=== PATIENT | female | born 1985 | race Caucasian/White ===

== ENCOUNTER 2019-06-28 12:05 | Emergency (ER) | payer OTHER ==
[~2019-06-28] VITALS: Ht 167.6 cm; Wt 93.0 kg
--- OUTSIDE RECORDS SUMMARY | ~2019-06-28 | XMS | Clinical Summary ---
Demographics + + + | Address | [address] | | | [address] | | | [place] [address] | + + + | Home Phone | | + + + | Preferred Language | Unknown | + + + | Marital Status | Single | + + + | Presybeterian Affiliation | Unknown | + + + | Race | Unknown | + + + | Ethnic Group | Unknown | + + + Author + + + | Author | [facility] | | | and [place] | + + + | Organization | [facility] | | | and [place] | + + + | Address | Unknown | + + + | Phone | Unavailable | + + + Support + + + + + | Name | Relationship | Address | Phone | + + + + + | Vandonsel,Sayda | ECON | NA | | | | | NA, | | + + + + + | Davy Jett | ECON | [address] | | | | | [place] | | | | | [address] | | + + + + + Care Team Providers + +------+ + | Care Biomedical Technician Name | Role | Phone | + +------+ + PCP | Unavailable | + +------+ + Allergies Not on File Medications Not on file Active Problems Not on file Social History + +-------+ +--------+------+ | Tobacco Use | Types | Packs/Day | Years | Date | | | | | Used | | + +-------+ +--------+------+ | Never Assessed | | | | | + +-------+ +--------+------+ + + + | Sex Assigned at | Date Recorded | | | | + + + | Not on file | | + + + + + + + | Job Start Date | Occupation | Industry | + + + + | Not on file | Not on file | Not on file | + + + + + + + + | Travel History | Travel Start | Travel End | + + + + + + | No recent travel history available. | + + Last Filed Vital Signs Not on file Plan of Treatment + + + + + | Health Maintenance | Due Date | Last Done | Comments | + + + + + | Vaccine: | | | | | Dtap/Tdap/Td (1 - | 3 | | | | Tdap) | | | | + + + + + | Cervical Cancer | | | | | Screening (Pap) | 4 | | | + + + + + | Vaccine: Influenza | | | | | (#1) | 9 | | | + + + + + Results Not on filefrom Last 3 Months Insurance + +--------+ +--------+ +---------+------+ | Payer | Benefi | Subscriber | Effect | Phone | Address | Type | | | t Plan | ID | yanelis | | | | | | / | | Dates | | | | | | Group | | | | | | + +--------+ +--------+ +---------+------+ | [employer] | HEALTH | [id number] | 04/14/20 | [phone] | | PPO | | | COMP | | 10-Pre | 7 | | | | | FIRST | | sent | | | | | | CHOICE | | | | | | + +--------+ +--------+ +---------+------+ + +--------+ +--------+ + + | Guarantor Name | Accoun | Relation to | Date | Phone | Billing Address | | | t Type | Patient | of | | | | | | | | | | + +--------+ +--------+ + + | Brittany Jett S | Person | Self [birth year] | [address] | | | al/Fam | | 1985 | [phone] | [address] | | | ry | | | 6 (Home) | [place] [address] | | | | | | [phone] | | | | | | | 4 (Work) | | + +--------+ +--------+ + + Advance Directives Patient has advance care planning documents on file. For more information, please contact:[facility] [address]"
--- OUTSIDE RECORDS SUMMARY | ~2019-06-28 | XMS | Clinical Summary ---
Demographics + + + | Address | [address] | | | [address] | | | [place] [address] | + + + | Home Phone | | + + + | Preferred Language | Unknown | + + + | Marital Status | Single | + + + | Holiness Affiliation | Unknown | + + + | Race | Unknown | + + + | Ethnic Group | Unknown | + + + Author + + + | Author | [facility] | | | and [place] | + + + | Organization | [facility] | | | and [...] [place] | | | | | [address] | | + + + + + Care Team Providers + +------+ + | Care Metallurgical Inspector Name | Role | Phone | + [...] +--------+ +---------+------+ | [employer] | HEALTH | [id number] | 04/14/20 | [phone] | | PPO [...] | | al/Fam | | 1985 | [phone] | [address] | | | ry | | | 6 (Home) | [place] [address] | | | | | | [phone] | | | | | | | 4 (Work) | | + +--------+ +--------+ + + Advance Directives Patient has advance care planning documents on file. For more information, please contact:[facility] [place] [address]"
--- OUTSIDE RECORDS SUMMARY | ~2019-06-28 | XMS | Clinical Summary ---
Demographics + + + | Address | [address] | | | [place] [address] | + + + | Home Phone | | + + + | Preferred Language | Unknown | + + + | Marital Status | Single | + + + | Voodoo Affiliation | NON | + + + [...] Team Providers + +------+ + | Care Coal Screener Name | Role | Phone | + +------+ + PCP | Unavailable | + +------+ + Source Comments NO is fully live on both [facility] Amb[facility] and [facility] InPatient.[facility] Allergies No Known Allergies Medications + [...] e | + + + +---------+------+------+-------+ | N-[id number] | Take by mouth. | | 0 [...] ry | | | 6 (Home) | [address] | + +--------+ +--------+ + + Advance [...]
--- OUTSIDE RECORDS SUMMARY | ~2019-06-28 | XMS | Encounter Summary ---
Demographics + + + | Address | [address] | | | [place] [address] | + + + | Home Phone | | + + + | Preferred Language | Unknown | + + + | Marital Status | Single | + + + | Jain Affiliation | NON | + + + | Race | White | + + + | Ethnic Group | Not or | + + + Author + + + | Author | [facility] | + + + | Organization | [facility] | + + + | Address | Unknown | + + + | Phone | Unavailable | + + + Support + + +---------+ + | Name | Relationship | Address | Phone | + + +---------+ + | Davy Jett | ECON | Unknown | | + + +---------+ + Care Team Providers + +------+ + | Care Tool And Die Machinist Name | Role | Phone | + +------+ + PCP | Unavailable | + +------+ + Encounter Details +--------+ + + + + | Date | Type | Department | Care Team | Description | +--------+ + + + + | 03/15/ | Abstract | Neurology at | Clinic, Neurology | | | 2012 | | [facility] & | | | | | | Healing [facility] | | | | | | Paramjit Patel Mailcode: | | | | | | [facility] | | | | | | Health and Healing, | | | | | | [facility] | | | | | | Floor [place], [place] | | | | | | [address] | | | | | | [phone] | | | +--------+ + + + [...]
--- OUTSIDE RECORDS SUMMARY | ~2019-06-28 | XMS | Encounter Summary ---
Demographics + + + | Address | [address] | | | [place] [address] | + + + | Home Phone | | + + + | Preferred Language | Unknown | + + + | Marital Status | Single | + + + | Hinduism Affiliation | NON | + + + | Race | White | + + + | Ethnic Group | Not or | + + + Author + + + | Author | [facility] | + + + | Organization | [facility] | + + + | Address | Unknown | + + + | Phone | Unavailable | + + + Support + + +---------+ + | Name | Relationship | Address | Phone | + + +---------+ + | Davy Jett | ECON | Unknown | | + + +---------+ + Care Team Providers + +------+ + | Care Director Social Welfare Name | Role | Phone | + [...] + + | 02/17/ | Hospital | [address] | Kee Cedeno, | | | 2012 - | Encounter | [address] | [place] [address] [facility] | | | | | [address] [place] [address] | [address] | | | 02/18/ | | [place], [place] | [place] | | | 2012 | | [address] | [address] | | | | | [phone] | [phone] | | | | | | | [...] and plan outlined therein. Kee Cedeno M.D. 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 She then went to the [facility] for further solitario luation. There she was noted to have a UA with positive LE and 15 WBC's, no bacteria (asympt omatic bacturia). She denied any urinary symptoms, but was given a dose of cipro and some ty lenol for her headache. She was then transferred to [facility] for further evaluation. She [...] mg by mouth once daily., Historical Med D-[id number]-ZDA ESTR/ETHIN ESTRA (SEASONIQUE ORAL) Take by mouth., [...] | + + + +---------+--------+ + | F-[id number] | Take by mouth. | | 0 [...] Tristian Boland - 02/18/2013 12:00 PM PDT PRESSFITTER NOTE: Visited with Patient and Dad. Patient and Dad shared events leading to hospitalization; life and work in [place]; 4 yea r old son as well as hopes and dreams. Patient reported supportive family and friends; mom and sisters in [place]. Offered emotional support and encouragement. [employer] team will follow as needed. Chaplain Tristian Boland M.Div., [facility]3] [phone] Pager [phone]; #[phone] documented in this encounter Plan of Treatment [...] | + + + + + | [facility] | [address] | [place] [address] | | | SERVICES, CORE | CHELE [...] | | | LABORATORY | | | [place] | | | SERVICES, | | | [...] | + + + + + | [facility] | [address] | [place] [address] | | | SERVICES, CORE | CHELE [...] | + + + + + | [facility] | [address] | [place] [address] | | | [address] | PARK [...] | + + + + + | [facility] | [address] | [place] [address] | | | SERVICES, CORE | CHELE [...] | | | LABORATORY | | | [place] | | | SERVICES, | | | [...] | + + + + + | [facility] | [address] | [place] [address] | | | SERVICES, CORE | PARK [...]
--- OUTSIDE RECORDS SUMMARY | ~2019-06-28 | XMS | Encounter Summary ---
Demographics + + + | Address | [address] | | | [place] [address] | + + + | Home Phone | | + + + | Preferred Language | Unknown | + + + | Marital Status | Single | + + + | Anglican Affiliation | NON | + + + | Race | White | + + + | Ethnic Group | Not or | + + + Author + + + | Author | [facility] | + + + | Organization | [facility] | + + + | Address | Unknown | + + + | Phone | Unavailable | + + + Support + + +---------+ + | Name | Relationship | Address | Phone | + + +---------+ + | Davy Jett | ECON | Unknown | | + + +---------+ + Care Team Providers + +------+ + | Care Machine Heel Seat Fitter Name | Role | Phone | + +------+ + PCP | Unavailable | + +------+ + Encounter Details +--------+ + + + + | Date | Type | Department | Care Team | Description | +--------+ + + + + | 03/15/ | Abstract | Neurology at | Clinic, Neurology | | | 2012 | | [facility] & | | | | | | Healing [facility] | | | | | | Paramjit Patel Mailcode: | | | | | | [facility] | | | | | | Health and Healing, | | | | | | [facility] | | | | | | Floor [place], [place] | | | | | | [address] | | | | | | [phone] | | | +--------+ + + + [...]
--- OUTSIDE RECORDS SUMMARY | ~2019-06-28 | XMS | Encounter Summary ---
Demographics + + + | Address | [address] | | | [place] [address] | + + + | Home Phone | | + + + | Preferred Language | Unknown | + + + | Marital Status | Single | + + + | Scientology Affiliation | NON | + + + | Race | White | + + + | Ethnic Group | Not or | + + + Author + + + | Author | [facility] | + + + | Organization | [facility] | + + + | Address | Unknown | + + + | Phone | Unavailable | + + + Support + + +---------+ + | Name | Relationship | Address | Phone | + + +---------+ + | Davy Jett | ECON | Unknown | | + + +---------+ + Care Team Providers + +------+ + | Care Motor Bike Mechanic Name | Role | Phone | + [...] + + | 02/17/ | Hospital | [address] | Kee Cedeno, | | | 2012 - | Encounter | [address] | [place] [address] [facility] | | | | | [address] [place] [address] | [address] | | | 02/18/ | | [place] | | | 2012 | | [address] | [address] | | | | | [phone] | [phone] | | | | | | | [...] and plan outlined therein. Kee Cedeno M.D. 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 She then went to the [facility] for further solitario luation. There she was noted to have a UA with positive LE and 15 WBC's, no bacteria (asympt omatic bacturia). She denied any urinary symptoms, but was given a dose of cipro and some ty lenol for her headache. She was then transferred to [facility] for further evaluation. She denied any [...] mg by mouth once daily., Historical Med K-ICTZHKD-[id number] ESTR/ETHIN ESTRA (SEASONIQUE ORAL) Take by mouth., [...] | + + + +---------+--------+ + | D-[id number]-[id number] | Take by mouth. | | 0 [...] Tristian Boland - 02/18/2013 12:00 PM PDT PE MANAGER NOTE: Visited with Patient and Dad. Patient and Dad shared events leading to hospitalization; life and work in [place]; 4 yea r old son as well as hopes and dreams. Patient reported supportive family and friends; mom and sisters in [place]. Offered emotional support and encouragement. [employer] team will follow as needed. Chaplain Tristian Boland M.Div., [facility] [phone] Pager #[phone]; #[phone] documented in this encounter Plan of Treatment [...] | + + + + + | [facility] | [address] | [place] [address] | | | SERVICES, CORE | CHELE [...] | | | LABORATORY | | | [place] | | | SERVICES, | | | [...] [place] [facility] | [address] | [place] [address] | | | SERVICES, CORE | CHELE [...] | + + + + + | [facility] | [address] | [place] [address] | | | [address] | PARK [...] | + + + + + | [facility] | [address] | [place] [address] | | | SERVICES, CORE | [address] | | | + + + [...] | | | LABORATORY | | | [place] | | | SERVICES, | | | [...] | + + + + + | [facility] | [address] | [place] [address] | | | SERVICES, CORE | PARK [...]
--- OUTSIDE RECORDS SUMMARY | ~2019-06-28 | XMS | Clinical Summary ---
Demographics + + + | Address | [address] | | | [place] [address] | + + + | Home Phone [...] Team Providers + +------+ + | Care Geophysical Prospector Name | Role | Phone | + +------+ + PCP | Unavailable | + +------+ + Source Comments NO is fully live on both [facility] Ambulatory and [facility] InPatient.[facility] Allergies No Known Allergies Medications + [...] e | + + + +---------+------+------+-------+ | B-[id number] | Take by mouth. | | 0 [...] ry | | | 6 (Home) | [address] | + +--------+ +--------+ + + Advance [...]
[~2019-06-28 12:05] MED LIST: NORCO 5-325 TA1 EACH PO; ONE DAILY WITH1 EACH PO; PROZAC40 MG PO; SEASONIQUE 0.11 EACH PO; XANAX0.25 MG PO
[2019-06-28] MEDS ORDERED: BUPROPION HCL200 MG PO (12:14)
[2019-06-28] MEDS ORDERED: CYMBALTA30 MG PO (12:15)
[2019-06-28] MEDS ORDERED: GABAPENTIN300 MG PO (12:15)
[2019-06-28] MEDS ORDERED: TRAMADOL HCL50 MG PO (14:15)
== END 2019-06-28 14:36 | disposition home or self-care (01) ==
LOC: ED 12:05
DX: M54.5 Low back pain (principal); F17.200 Nicotine dependence, unspecified, uncomplicated; F32.9 Major depressive disorder, single episode, unspecified; F41.9 Anxiety disorder, unspecified; Z79.899 Other long term (current) drug therapy
CPT/HCPCS: 72131; 81001; 84703; 99284-25; 99406

== ENCOUNTER 2019-12-02 16:02 | Emergency (ER) | payer OTHER ==
[~2019-12-02] VITALS: Ht 167.6 cm; Wt 93.0 kg
[~2019-12-02 16:02] MED LIST changes: +BUPROPION HCL200 MG PO; +CYMBALTA30 MG PO; +GABAPENTIN300 MG PO; +TRAMADOL HCL50 MG PO
[2019-12-02] MEDS ORDERED: PREDNISONE20 MG PO (17:06)
[2019-12-02] MEDS ORDERED: ZITHROMAX250 MG PO (17:06)
== END 2019-12-02 17:19 | disposition home or self-care (01) ==
LOC: ED 16:02
DX: J44.1 Chronic obstructive pulmonary disease with (acute) exacerbation (principal); J06.9 Acute upper respiratory infection, unspecified; F41.9 Anxiety disorder, unspecified; F32.9 Major depressive disorder, single episode, unspecified; F17.200 Nicotine dependence, unspecified, uncomplicated; Z79.899 Other long term (current) drug therapy
CPT/HCPCS: 71046; 94640; 94664; 99284-25; 99406

== ENCOUNTER 2020-04-17 11:07 | Emergency (ER) | payer OTHER ==
[~2020-04-17] VITALS: Ht 167.6 cm; Wt 95.2 kg
--- OUTSIDE RECORDS SUMMARY | ~2020-04-17 | XMS | Encounter Summary ---
Demographics + + + | Address | [address] | | | [place] [address] | + + + | Home Phone | | + + + | Preferred Language | Unknown | + + + | Marital Status | Single | + + + | Adventist Affiliation | NON | + + + | Race | White | + + + | Ethnic Group | Not or | + + + Author + + + | Author | [facility] | + + + | Organization | [facility] | + + + | Address | Unknown | + + + | Phone | Unavailable | + + + Support + + +---------+ + | Name | Relationship | Address | Phone | + + +---------+ + | Davy Jett | ECON | Unknown | | + + +---------+ + Care Team Providers + +------+ + | Care Commercial Instructor Supervisor Name | Role | Phone | + +------+ + PCP | Unavailable | + +------+ + Encounter Details +--------+ + + + + | Date | Type | Department | Care Team | Description | +--------+ + + + + | 03/15/ | Abstract | Neurology | Clinic, Neurology | | | 2012 | | Neuromuscular Clinic | | | | | | at [facility] | | | | | | Health & Healing | | | | | | [address] | | | | | | [facility] | | | | | | and Healing, | | | | | | Building | | | | | | Floor [place], [place] | | | | | | [address] | | | | | | [phone] | | | +--------+ + + + + Social History + +-------+ +--------+------+ | Tobacco Use | Types | Packs/Day | Years | Date | | | | | Used | | + +-------+ +--------+------+ | Never Smoker | | | | | + +-------+ +--------+------+ + + +---------+ + | Alcohol Use | Drinks/Week | oz/Week | Comments | + + +---------+ + | Yes | | | Drinks a few times a | | | | | year | + + +---------+ + + + + | Sex Assigned at [...] recent travel history available. | + + documented as of this encounter Plan of Treatment Not on filedocumented as of this encounter Visit Diagnoses Not on filedocumented in this encounter"
--- OUTSIDE RECORDS SUMMARY | ~2020-04-17 | XMS | Encounter Summary ---
Demographics + + + | Address | [address] | | | [place] [address] | + + + | Home Phone | | + + + | Preferred Language | Unknown | + + + | Marital Status | Single | + + + | Adventism Affiliation | NON | + + + | Race | White | + + + | Ethnic Group | Not or | + + + Author + + + | Author | [facility] | + + + | Organization | [facility] | + + + | Address | Unknown | + + + | Phone | Unavailable | + + + Support + + +---------+ + | Name | Relationship | Address | Phone | + + +---------+ + | Davy Jett | ECON | Unknown | | + + +---------+ + Care Team Providers + +------+ + | Care Bookstore Manager Name | Role | Phone | + +------+ + | Violetta King | PCP | | + +------+ + Reason for Visit +--------+ + | Reason | Comments | +--------+ + | Other | involuntary movements | +--------+ + AUTH/CERT +--------+--------+ + + + + | Status | Reason | Specialty | Diagnoses / | Referred By | Referred To | | | | | Procedures | Contact | Contact | +--------+--------+ + + + + | | | | | | | +--------+--------+ + + + + Encounter Details +--------+ + + + + | Date | Type | Department | Care Team | Description | +--------+ + + + + | 02/17/ | Hospital | [address] | Kee Cedeno, | | | 2012 - | Encounter | [address] | [place] [facility] | | | | | [address] [place] [address] | [address] | | | 02/18/ | | [place], [place] | [place], [place] | | | 2012 | | [address] | [id number] | | | | | [phone] | [phone] | | | | | | | | +--------+ + + + [...] + + documented as of this encounter Last Filed Vital Signs + + + + + | Vital Sign | Reading | Time Taken | Comments | + + + + + | Blood Pressure | 112/57 | 02/18/2013 8:05 AM | | | | | PDT | | + + + + + | Pulse | 68 | 02/18/2013 8:05 AM | | | | | PDT | | + + + + + | Temperature | 36.8 C (98.2 F) | 02/18/2013 8:05 AM | | | | | PDT | | + + + + + | Respiratory Rate | 18 | 02/18/2013 8:05 AM | | | | | PDT | | + + + + + | Oxygen Saturation | 96% | 02/18/2013 8:05 AM | | | | | PDT | | + + + + + | Inhaled Oxygen | - | - | | | Concentration | | | | + + + + + | Weight | 107 kg (235 lb 14.3 | 02/17/2013 10:27 PM | | | | oz) | PDT | | + + + + + | Height | - | - | | + + + + + | Body Mass Index | - | - | | + + + + + documented in this encounter Discharge Summaries Kee Cedeno MD - 02/18/2013 1:51 PM PDTI have read this discharge summary and agree w ith the findings and assessment and plan outlined therein. Kee Cedeno M.D. [facility] Department of Neurology [facility] olly Tsai MD - 02/18/2013 1:51 PM PDTFormatting of this note might be different from the or iginal. INPATIENT PHYSICIAN DISCHARGE SUMMARY Attending Physician: Kee Cedeno MD PCP: MARY ANNE Carmichael Admission Date: 02/17/2013 Discharge Date: 02/18/2013 Diagnoses Principal Final Diagnosis: 1. Conversion disorder Additional Diagnoses: -None Procedures 1. None Reason For Admission: Brittany Jett is a 27 y.o. female with a PMH of depression and chronic low back and knee pain who presented with a 4 day history of abnormal movements. Ms. 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 The next day she noticed twitching of bilateral lower extremities, which was accompanied by a sensation of tightening. She has noticed the twitching is worse on the right, but was p resent on both sides most of the day. She was able to suppress the movements when she tried, but described a worsening jerking movement after she tried to suppress them. She noted that people watching her made her movements worse. The day after the movements developed in her lower extremities, she then stated that the next day she developed twitching movements of he r bilateral upper extremities. She said that she did have pain with these movements, especia lly at night in her legs. 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 According to the patient, her PCP ben basic labs which showed a leukocytosis and did a brain MRI, which was normal. She then described that on the morning of 02/17/2013, she felt very lightheaded while she was sitting with her son. No one else besides her 4 year old son was there to witness th is episode. She denied any LOC, any amnesia to the event, any bowel or bladder incontinence, tongue biting, but did describe some increased bilateral lower extremity weakness. She also described a new headache on the day of admission, that was retroorbital and radiated to beh ind her ears. She then said that she had an emotional breakdown with a crying episode becaus e she "just wanted it to go away". [facility] then went to [facility] further solitario luation. There she was noted to have a UA with positive LE and 15 WBC's, no bacteria (asympt omatic bacturia). She denied any urinary symptoms, but was given a dose of cipro and some ty lenol for her headache. She was then transferred to [facility] for further evaluation. She denied any vision changes, slurred speech, word finding difficulties, any previous abn ormal movements, no throat clearing, no grunting, no recent URI or GI illnesses. She does en dorse monthly falls, which she attributes to her foot not turning in correctly. Her most rec ent fall was a couple of weeks ago. Hospital Course: Admitted to the neurology service. A broad differential diagnosis was considered on admiss ion including restless leg syndrome (unlikely due to abrupt and severe onset), seizures (unl ikely given ability to suppress movements by patient, non-stereotyped and multidirectional m ovements and no alteration in consciousness with bilateral involvement). Physical examinati on was significant for a patient with upper and lower extremity (including head) varying esthela quency and amplitude suppressible and distractible multidirectional movements accompanied by non-stereotyped upper and lower extremity and axial jerks. Otherwise was neurologically int act. Also with recent life stressors. Iron studies evaluated and found to be iron replete. Likely diagnosis of conversion disorder. I spoke with the patient and father about this and they were accepting of this diagnosis. Also spoke with primary care physician and he will help her find follow up with psych for cognitive therapy and also PT/OT as needed as an outp atient. Told her that she has a good prognosis. No further follow up with neurology. Discharge Medication List as of 02/18/2013 12:37 PM CONTINUE these medications which have NOT CHANGED Details FLUoxetine 40 mg Oral capsule Take 40 mg by mouth once daily., Historical Med D-[id number] ESTR/ETHIN ESTRA (SEASONIQUE ORAL) Take by mouth., Historical Med multivitamin Oral tablet Take 1 Tab by mouth once daily., Historical Med Diet Regular Regular diet- There are no restrictions to your diet. You may eat or drink whatever you pr efer, though healthy food choices are recommended. Activity No activity restrictions Destination: Destination: Home Condition on Discharge Stable Other Discharge Orders and Instructions Outstanding labs/studies: None Discharging Physician: MOLLY TSAI MD Attending Physician: Kee Cedeno MDElectronically signed by Kee Cedeno MD at 02/18 4:41 PM PDTdocumented in this encounter Discharge Instructions Instructions Yue Gleason RN - 02/18/2013dditional Instructions: Follow up with your provider and take all medications as prescribed. Have a safe trip home. Discharge Nurse: YUE GLEASON RN Date: 02/18/2013 Discharge Time: 12:31 PM documented in this encounter Medications at Time of Discharge + + + +---------+--------+ + | Medication | Sig | Dispensed | Refills | Start | End Date | | | | | | Date | | + + + +---------+--------+ + | FLUoxetine 40 mg | Take 40 mg by mouth | | 0 | | | | Oral capsule | once daily. | | | | | + + + +---------+--------+ + | P-HITXMTU-CYM | Take by mouth. | | 0 | | | | ESTR/ETHIN ESTRA | | | | | | | (SEASONIQUE ORAL) | | | | | | + + + +---------+--------+ + | multivitamin Oral | Take 1 Tab by mouth | | 0 | | | | tablet | once daily. | | | | | + + + +---------+--------+ + documented as of this encounter Progress Notes Tristian Boland - 02/18/2013 12:00 PM PDT STOCK HOLDER NOTE: Visited with Patient and Dad. Patient and Dad shared events leading to hospitalization; life and work in [place]; 4 yea r old son as well as hopes and dreams. Patient reported supportive family and friends; mom and sisters in [place]. Offered emotional support and encouragement. Tape Recording Machine Operator team will follow as needed. Chaplain Tristian Boland M.Div., [facility] [phone] Pager [phone]; #[phone] documented in this encounter Plan of Treatment + +------+--------+ + + | Name | Type | Priori | Associated Diagnoses | Order Schedule | | | | ty | | | + +------+--------+ + + | HUONG CAPPS ONLY | Lab | Routin | | Collect Now for 1 | | | | e | | Occurrences starting | | | | | | 02/17/2013 until | | | | | | 02/17/2013 | + +------+--------+ + + | URINE, MICROSCOPIC | Lab | Routin | | Collect Now for 1 | | EXAM | | e | | Occurrences starting | | | | | | 02/17/2013 until | | | | | | 02/17/2013 | + +------+--------+ + + | URINE SCREEN FOR | Lab | Routin | | Collect Now for 1 | | CULTURE | | e | | Occurrences starting | | | | | | 02/17/2013 until | | | | | | 02/17/2013 | + +------+--------+ + + documented as of this encounter Procedures + +--------+ + + + | Procedure Name | Priori | Date/Time | Associated Diagnosis | Comments | | | ty | | | | + +--------+ + + + | CBC ONLY | Routin | 02/18/2013 | | Results for this | | | e | 7:50 AM | | procedure are in the | | | | PDT | | results section. | + +--------+ + + + | CBC ONLY | Routin | 02/18/2013 | | Results for this | | | e | 7:50 AM | | procedure are in the | | | | PDT | | results section. | + +--------+ + + + | BASIC METABOLIC SET | Routin | 02/18/2013 | | Results for this | | (NA, K, CL, TCO2, | e | 7:40 AM | | procedure are in the | | BUN, CR, GLU, CA) | | PDT | | results section. | + +--------+ + + + | FERRITIN | Routin | 02/18/2013 | | Results for this | | | e | 7:40 AM | | procedure are in the | | | | PDT | | results section. | + +--------+ + + + | IRON AND TIBC, SERUM | Routin | 02/18/2013 | | Results for this | | | e | 7:40 AM | | procedure are in the | | | | PDT | | results section. | + +--------+ + + + | COMPLETE METABOLIC | Routin | 02/17/2013 | | Results for this | | SET | e | 8:42 PM | | procedure are in the | | (NA,K,CL,CO2,BUN,CRE | | PDT | | results section. | | AT,GLUC,CA,AST,ALT,B | | | | | | DEMETRIS TOTAL,ALK | | | | | | PHOS,ALB,PROT TOTAL) | | | | | + +--------+ + + + documented in this encounter Results CBC (02/18/2013 7:50 AM PDT) + + + + + + | Component | Value | Ref Range | Performed | Pathologist | | | | | At | Signature | + + + + + + | WBC COUNT | 11.2 (H) | 4.4 - 11.0 K/cu | [facility] | | | | | mm | LABORATORY | | | | | | SERVICES, | | | | | | CORE | | + + + + + + | RED CELL | 4.60 | 4.00 - 5.20 | [facility] | | | COUNT | | M/cu mm | LABORATORY | | | | | | SERVICES, | | | | | | CORE | | + + + + + + | HEMOGLOBIN | 13.5 | 12.0 - 16.0 | [facility] | | | | | g/dL | LABORATORY | | | | | | SERVICES, | | | | | | CORE | | + + + + + + | HEMATOCRIT | 41.2 | 36.0 - 46.0 % | [facility] | | | | | | LABORATORY | | | | | | SERVICES, | | | | | | CORE | | + + + + + + | MCV | 89.6 | 80.0 - 96.0 fL | [facility] | | | | | | LABORATORY | | | | | | SERVICES, | | | | | | CORE | | + + + + + + | MCHC | 32.8 (L) | 33.4 - 35.5 | [facility] | | | | | g/dL | LABORATORY | | | | | | SERVICES, | | | | | | CORE | | + + + + + + | RDW | 13.5 | 11.5 - 15.0 % | [facility] | | | | | | LABORATORY | | | | | | SERVICES, | | | | | | CORE | | + + + + + + | PLATELET | 244 | 150 - 400 K/cu | [facility] | | | COUNT | | mm | LABORATORY | | | | | | SERVICES, | | | | | | CORE | | + + + + + + + + | Specimen | + + | Blood - Blood | + + + + + + + | Performing | Address | City/State/Zipcode | Phone Number | | Organization | | | | + + + + + | [facility] | [address] | [place] [address] | | | SERVICES, CORE | [address] | | | + + + + + BASIC METABOLIC SET (NA, K, CL, TCO2, BUN, CR, GLU, CA) (02/18/2013 7:40 AM PDT) + +---------+ + + + | Component | Value | Ref Range | Performed | Pathologist | | | | | At | Signature | + +---------+ + + + | GLUCOSE, | 88 | 60 - 99 mg/dL | [facility] | | | PLASMA | | | LABORATORY | | | (LAB) | | | SERVICES, | | | | | | CORE | | + +---------+ + + + | BUN, PLASMA | 14 | 6 - 20 mg/dL | [facility] | | | (LAB) | | | LABORATORY | | | | | | SERVICES, | | | | | | CORE | | + +---------+ + + + | CREATININE | 0.80 | 0.60 - 1.10 | [facility] | | | PLASMA | | mg/dL | LABORATORY | | | (LAB) | | | SERVICES, | | | | | | CORE | | + +---------+ + + + | EGFR | >60 | >60 mL/min | [facility] | | | - | | | LABORATORY | | | CAMEROONIAN | | | SERVICES, | | | | | | CORE | | + +---------+ + + + | EGFR NON | >60 | >60 mL/min | [facility] | | | -[facility] | | | LABORATORY | | | RICAN | | | SERVICES, | | | | | | CORE | | + +---------+ + + + | SODIUM, | 140 | 136 - 145 | [facility] | | | PLASMA | | mmol/L | LABORATORY | | | (LAB) | | | SERVICES, | | | | | | CORE | | + +---------+ + + + | POTASSIUM, | 4.0 | 3.4 - 5.0 | [facility] | | | PLASMA | | mmol/L | LABORATORY | | | (LAB) | | | SERVICES, | | | | | | CORE | | + +---------+ + + + | CHLORIDE, | 105 | 97 - 108 mmol/L | [facility] | | | PLASMA | | | LABORATORY | | | (LAB) | | | SERVICES, | | | | | | CORE | | + +---------+ + + + | TOTAL CO2, | 25 | 21 - 32 mmol/L | [facility] | | | PLASMA | | | LABORATORY | | | (LAB) | | | SERVICES, | | | | | | CORE | | + +---------+ + + + | CALCIUM, | 8.2 (L) | 8.6 - 10.2 | [facility] | | | PLASMA | | mg/dL | LABORATORY | | | (LAB) | | | SERVICES, | | | | | | CORE | | + +---------+ + + + | ANION GAP | 10 | mmol/L | [facility] | | | | | | LABORATORY | | | | | | SERVICES, | | | | | | CORE | | + +---------+ + + + | POTASSIUM | No Hemo | | [facility] | | | CMNT | | | LABORATORY | | | | | | SERVICES, | | | | | | CORE | | + +---------+ + + + + + | Specimen | + + | Blood - Blood | + + + + + | Narrative | Performed At | + + + | GFR is estimated using the MDRD equation recommended by the | [facility] | | National Kidney Disease Education Program. Estimated GFR | LABORATORY | | Interpretive Information: <60 mL/min/1.73 sq m | SERVICES, CORE | | Chronic Kidney Disease <15 mL/min/1.73 sq m | | | Kidney Failure Estimated GFR greater that 60 mL/min/1.73 sq m is of | | | limited clinical value. The MDRD equation is not valid in the | | | following situations: - Patients under 18 years of age - Severe | | | malnutrition or obesity - Vegetarian diet - Rapidly changing kidney | | | function | | + + + + + + + + | Performing | Address | City/State/Zipcode | Phone Number | | Organization | | | | + + + + + | [facility] | [address] | [place] [address] | | | SERVICES, CORE | [address] | | | + + + + + FERRITIN, SERUM (02/18/2013 7:40 AM PDT) + + + + + + | Component | Value | Ref Range | Performed | Pathologist | | | | | At | Signature | + + + + + + | FERRITIN | 226 (H)Comment: Male | 50 - 200 ng/mL | [facility] | | | | and Female >18 years: | | LABORATORY | | | | <20 ng/mL: | | SERVICES, | | | | Consistant with iron | | CORE | | | | deficiency 21-50 | | | | | | ng/mL: Possible | | | | | | iron deficiency 51-99 | | | | | | ng/mL: Iron | | | | | | deficiency unlikely | | | | | | unless inflammation | | | | | | present or | | | | | | patient | | | | | | >65 years of age | | | | | | 100-200 ng/mL: | | | | | | Normal, not consistent | | | | | | with iron deficiency | | | | | | >200 ng/mL: If | | | | | | transferrin saturation | | | | | | >45%, consider | | | | | | hemochromatosis | | | | + + + + + + + + | Specimen | + + | Blood - Blood | + + + + + | Narrative | Performed At | + + + | New reporting units and pediatric reference ranges effective | [facility] | | 02/02/2013. | LABORATORY | | | [address] | + + + + + + + + | Performing | Address | City/State/Zipcode | Phone Number | | Organization | | | | + + + + + | [facility] | [address] | [place] [address] | | | [address] | [address] | | | + + + + + IRON AND TIBC, SERUM (02/18/2013 7:40 AM PDT) + +--------+ + + + | Component | Value | Ref Range | Performed | Pathologist | | | | | At | Signature | + +--------+ + + + | IRON | 81 | 30 - 160 ug/dL | [facility] | | | | | | LABORATORY | | | | | | SERVICES, | | | | | | CORE | | + +--------+ + + + | IRON BIND | 425 | 240 - 450 ug/dL | [facility] | | | CAP | | | LABORATORY | | | | | | SERVICES, | | | | | | CORE | | + +--------+ + + + | % | 19 (L) | 20 - 50 % | [facility] | | | SATURATION | | | LABORATORY | | | TRANSFERRIN | | | SERVICES, | | | , | | | CORE | | + +--------+ + + + + + | Specimen | + + | Blood - Blood | + + + + + + + | Performing | Address | City/State/Zipcode | Phone Number | | Organization | | | | + + + + + | [facility] | [address] | [place] [address] | | | SERVICES, CORE | [address] | | | + + + + + COMPLETE METABOLIC SET (NA,K,CL,CO2,BUN,CREAT,GLUC,CA,AST,ALT,BILI TOTAL,ALK PHOS,ALB,PROT TOTAL) (02/17/2013 8:42 PM PDT) + +---------+ + + + | Component | Value | Ref Range | Performed | Pathologist | | | | | At | Signature | + +---------+ + + + | GLUCOSE, | 83 | 60 - 99 mg/dL | [facility] | | | PLASMA | | | LABORATORY | | | (LAB) | | | SERVICES, | | | | | | CORE | | + +---------+ + + + | BUN, PLASMA | 11 | 6 - 20 mg/dL | [facility] | | | (LAB) | | | LABORATORY | | | | | | SERVICES, | | | | | | CORE | | + +---------+ + + + | CREATININE | 0.78 | 0.60 - 1.10 | [facility] | | | PLASMA | | mg/dL | LABORATORY | | | (LAB) | | | SERVICES, | | | | | | CORE | | + +---------+ + + + | EGFR | >60 | >60 mL/min | [facility] | | | - | | | LABORATORY | | | [facility] | | | SERVICES, | | | | | | CORE | | + +---------+ + + + | EGFR NON | >60 | >60 mL/min | [facility] | | | -[facility] | | | LABORATORY | | | RICAN | | | SERVICES, | | | | | | CORE | | + +---------+ + + + | SODIUM, | 141 | 136 - 145 | [facility] | | | PLASMA | | mmol/L | LABORATORY | | | (LAB) | | | SERVICES, | | | | | | CORE | | + +---------+ + + + | POTASSIUM, | 3.9 | 3.4 - 5.0 | [facility] | | | PLASMA | | mmol/L | LABORATORY | | | (LAB) | | | SERVICES, | | | | | | CORE | | + +---------+ + + + | CHLORIDE, | 105 | 97 - 108 mmol/L | [facility] | | | PLASMA | | | LABORATORY | | | (LAB) | | | SERVICES, | | | | | | CORE | | + +---------+ + + + | TOTAL CO2, | 26 | 21 - 32 mmol/L | [facility] | | | PLASMA | | | LABORATORY | | | (LAB) | | | SERVICES, | | | | | | CORE | | + +---------+ + + + | CALCIUM, | 8.3 (L) | 8.6 - 10.2 | [facility] | | | PLASMA | | mg/dL | LABORATORY | | | (LAB) | | | SERVICES, | | | | | | CORE | | + +---------+ + + + | BILIRUBIN | 0.6 | 0.3 - 1.2 mg/dL | [facility] | | | TOTAL | | | LABORATORY | | | | | | SERVICES, | | | | | | CORE | | + +---------+ + + + | TOTAL | 7.1 | 6.4 - 8.2 g/dL | [facility] | | | PROTEIN, | | | LABORATORY | | | PLASMA | | | SERVICES, | | | (LAB) | | | CORE | | + +---------+ + + + | ALBUMIN, | 3.1 (L) | 3.5 - 4.7 g/dL | [facility] | | | PLASMA | | | LABORATORY | | | (LAB) | | | SERVICES, | | | | | | CORE | | + +---------+ + + + | ALK PHOS | 63 | 42 - 98 U/L | [facility] | | | | | | LABORATORY | | | | | | SERVICES, | | | | | | CORE | | + +---------+ + + + | AST(SGOT) | 36 | 15 - 41 U/L | [facility] | | | | | | LABORATORY | | | | | | SERVICES, | | | | | | CORE | | + +---------+ + + + | ALT (SGPT) | 37 | 12 - 60 U/L | [facility] | | | | | | LABORATORY | | | | | | SERVICES, | | | | | | CORE | | + +---------+ + + + | ANION | 12 (H) | 4 - 11 mmol/L | [facility] | | | GAP(ALB | | | LABORATORY | | | CORRECTED) | | | SERVICES, | | | | | | CORE | | + +---------+ + + + | POTASSIUM | No Hemo | | [facility] | | | CMNT | | | LABORATORY | | | | | | SERVICES, | | | | | | CORE | | + +---------+ + + + | BILI T CMNT | No Hemo | | [facility] | | | | | | LABORATORY | | | | | | SERVICES, | | | | | | CORE | | + +---------+ + + + | AST CMNT | No Hemo | | [facility] | | | | | | LABORATORY | | | | | | SERVICES, | | | | | | CORE | | + +---------+ + + + | ANION GAP | 10 | mmol/L | [facility] | | | | | | LABORATORY | | | | | | SERVICES, | | | | | | CORE | | + +---------+ + + + + + | Specimen | + + | Blood - Blood | + + + + + | Narrative | Performed At | + + + | New reference range effective 2012 for Total proteins | [facility] | | performed in Core Lab only. GFR is estimated using the MDRD equation | LABORATORY | | recommended by the National Kidney Disease Education Program. | SERVICES, CORE | | Estimated GFR Interpretive Information: <60 mL/min/1.73 sq m | | | Chronic Kidney Disease <15 mL/min/1.73 sq m | | | Kidney Failure Estimated GFR greater that 60 mL/min/1.73 sq | | | m is of limited clinical value. The MDRD equation is not valid in | | | the following situations: - Patients under 18 years of age - Severe | | | malnutrition or obesity - Vegetarian diet - Rapidly changing kidney | | | function | | + + + + + + + + | Performing | Address | City/State/Zipcode | Phone Number | | Organization | | | | + + + + + | 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 | | disorder | + + documented in this encounter Administered Medications + +--------+ +-------+------+------+ | Medication Order | MAR | Action | Dose | Rate | Site | | | Action | Date | | | | + +--------+ +-------+------+------+ | FLUoxetine (aka PROZAC) capsule | Given | 02/19/20 | 40 mg | | | | 40 mg 40 mg, oral, DAILY, First | | 13 9:12 | | | | | dose on Thu02/18/13 at 0900, | | AM PDT | | | | | Until Discontinued | | | | | | + +--------+ +-------+------+------+ +---+---+ | | | +---+---+ + +-------+ +--------+---+---+ | ibuprofen (aka MOTRIN) tablet | Given | 02/18/20 | 400 mg | | | | 400 mg 400 mg, oral, EVERY | | 13 9:04 | | | | | HOURS NEEDED, Starting Nia | | PM PDT | | | | | 02/17/13 at 2007, Until Thu02/18/13 | | | | | | | at 2013, moderate pain | | | | | | + +-------+ +--------+---+---+ +---+---+ | | | +---+---+ + +-------+ +---------+---+---+ | multivitamin 1 Cap 1 capsule, | Given | 02/19/20 | 1 | | | | oral, DAILY, First dose on Thu | | 9:12 | capsule | | | | 02/18/13 at 0900, Until | | AM PDT | | | | | Discontinued | | | | | | + +-------+ +---------+---+---+ +---+---+ | | | +---+---+ documented in this encounter
--- OUTSIDE RECORDS SUMMARY | ~2020-04-17 | XMS | Clinical Summary ---
Demographics + + + | Address | [address] | | | [place] [address] | + + + | Home Phone | | + + + | Preferred Language | Unknown | + + + | Marital Status | Single | + + + | Jainism Affiliation | NON | + + + | Race | White | + + + | Ethnic Group | Not or | + + + Author + + + | Author | [facility] | + + + | Organization | [facility] | + + + | Address | Unknown | + + + | Phone | Unavailable | + + + Support + + +---------+ + | Name | Relationship | Address | Phone | + + +---------+ + | Davy Jett | ECON | Unknown | | + + +---------+ + Care Team Providers + +------+ + | Care Broadcast Journalist Name | Role | Phone | + +------+ + PCP | Unavailable | + +------+ + Source Comments NO is fully live on both [facility] Ambulatory and [facility] InPatient.[facility] Allergies No Known Allergies Medications + + + +---------+------+------+-------+ | Medication | Sig | Dispensed | Refills | Star | End | Statu | | | | | | t | Date | s | | | | | | Date | | | + + + +---------+------+------+-------+ | FLUoxetine 40 mg | Take 40 mg by mouth | | 0 | | | Activ | | Oral capsule | once daily. | | | | | e | + + + +---------+------+------+-------+ | L-SPHOOBZ-PIU | Take by mouth. | | 0 | | | Activ | | ESTR/ETHIN ESTRA | | | | | | e | | (SEASONIQUE ORAL) | | | | | | | + + + +---------+------+------+-------+ | multivitamin Oral | Take 1 Tab by mouth | | 0 | | | Activ | | tablet | once daily. | | | | | e | + + + +---------+------+------+-------+ Active Problems + + + | Problem | Noted Date | + + + | Movement disorder | 02/17/2013 | + + + Family History + + +------+ + | Medical History | Relation | Name | Comments | + + +------+ + | Cancer | Father | | rectal | + + +------+ + | Diabetes | Grandmoth | | | | | er | | | + + +------+ + | Cancer | Sister | | osteosarcoma | + + +------+ + + +------+--------+ + | Relation | Name | Status | Comments | + +------+--------+ + | Father | | | | + +------+--------+ + | Grandmother | | | | + +------+--------+ + | Sister | | | | + +------+--------+ + Social History + +-------+ +--------+------+ | [...] | + + Last Filed Vital Signs + + + [...] | | + + + + + Plan of Treatment + + + + + | Health Maintenance | Due Date | Last Done | Comments | + + + + + | Influenza (Flu) | | | | | vaccination (#1) | 9 | | | + + + + + | Pneumococcal | Aged Out | | No longer eligible | | vaccination | | | based on patient's | | | | | age to complete this | | | | | topic | + + + + + Results Not on filefrom Last 3 Months Insurance + +--------+ +--------+-------+---------+------+ | Payer | Benefi | Subscriber | Effect | Phone | Address | Type | | | t Plan | ID | yanelis | | | | | | / | | Dates | | | | | | Group | | | | | | + +--------+ +--------+-------+---------+------+ | [employer] | FIRST | [phone] | 04/14/20 | | | PPO | | | CHOICE | | 10-Pre | | | | | | | | sent | | | | | | HEALTH | | | | | | + +--------+ +--------+-------+---------+------+ + +--------+ +--------+ + + | Guarantor Name | Accoun | Relation to | Date | Phone | Billing Address | | | t Type | Patient | of | | | | | | | | | | + +--------+ +--------+ + + | Brittany Jett | Person | Self [birth year] | [address] | | | al/Fam | | 1985 | [phone] | [place] | | | ry | | | 6 (Home) | [address] | + +--------+ +--------+ + + Advance Directives + + + + + | Code Status | Date | Date | Comments | | | Activated | Inactivated | | + + + + + | Full Code | 02/17/2013 | 02/18/2013 | | | | 7:47 PM | 8:14 PM | | + + + + +"
--- OUTSIDE RECORDS SUMMARY | ~2020-04-17 | XMS | Clinical Summary ---
Demographics + + + | Address | [address] | | | [place] [address] | + + + | Home Phone | | + + + | Preferred Language | Unknown | + + + | Marital Status | Single | + + + | Jewish Affiliation | Unknown | + + + | Race | Unknown | + + + | Ethnic Group | Unknown | + + + Author + + + | Author | [facility] | | | and [place] | + + + | Organization | [facility] | | | and [place] | + + + | Address | Unknown | + + + | Phone | Unavailable | + + + Support + + + + + | Name | Relationship | Address | Phone | + + + + + | Sayda Carmona | ECON | NA | | | | | NA, | | + + + + + | Davy Jett | ECON | [address] | | | | | [place], [place] | | | | | [address] | | + + + + + Care Team Providers + +------+ + | Care J2Ee Engineer Name | Role | Phone | + +------+ + | No, Physician | PCP | Unavailable | + +------+ + Allergies No Known Allergies Medications + + + +---------+------+------+-------+ | Medication | Sig | Dispensed | Refills | Star | End | Statu | | | | | | t | Date | s | | | | | | Date | | | + + + +---------+------+------+-------+ | DULoxetine | Take 30 mg by mouth | | 0 | | | Activ | | (CYMBALTA) [address] | Daily. | | | | | e | | capsule | | | | | | | + + + +---------+------+------+-------+ | gabapentin | Take 300 mg by mouth | | 0 | | | Activ | | (NEURONTIN) 300 mg | 3 times daily. | | | | | e | | capsule | | | | | | | + + + +---------+------+------+-------+ | buPROPion | Take 200 mg by mouth | | 0 | | | Activ | | (WELLBUTRIN SR) 200 | 2 times daily. | | | | | e | | MG 12 hr tablet | | | | | | | + + + +---------+------+------+-------+ Active Problems Not on file Social History + +-------+ +--------+------+ | Tobacco Use | Types | Packs/Day | Years | Date | | | | | Used | | + +-------+ +--------+------+ | Current Every Day | | 0.5 | | | | Smoker | | | | | + +-------+ +--------+------+ + +---+---+---+ | Smokeless Tobacco: | | | | | Never Used | | | | + +---+---+---+ + + +---------+ + | Alcohol Use | Drinks/Week | oz/Week | Comments | + + +---------+ + | Yes | | | occasional | + + +---------+ + + + + | Sex Assigned at | Date Recorded | | | | + + + | Not on file | | + + + Last Filed Vital Signs + + + + + | Vital Sign | Reading | Time Taken | Comments | + + + + + | Blood Pressure | 127/57 | 06/30/2019 4:29 PM | | | | | PDT | | + + + + + | Pulse | 70 | 06/30/2019 4:29 PM | | | | | PDT | | + + + + + | Temperature | 36.9 C (98.4 F) | 06/30/2019 4:29 PM | | | | | PDT | | + + + + + | Respiratory Rate | 18 | 06/30/2019 4:29 PM | | | | | PDT | | + + + + + | Oxygen Saturation | 98% | 06/30/2019 4:29 PM | | | | | PDT | | + + + + + | Inhaled Oxygen | - | - | | | Concentration | | | | + + + + + | Weight | 93 kg (205 lb) | 06/30/2019 4:29 PM | | | | | PDT | | + + + + + | Height | - | - | | + + + + + | Body Mass Index | - | - | | + + + + + Plan of Treatment + + + + + | Health Maintenance | Due Date | Last | Comments | | | | Done | | + + + + + | Hepatitis C | | | | | Screening | 4 | | | + + + + + | Med Mgmt: Cr | | | | | | 4 | | | + + + + + | Med Mgmt: eGFR | | | | | | 4 | | | + + + + + | Medication | | | | | Management | 4 | | | + + + + + | Vaccine: | | | | | Pneumococcal 19-64 | 0 | | | | (1 of 1 - PPSV23) | | | | + + + + + | Vaccine: | | | | | Dtap/Tdap/Td (1 - | 3 | | | | Tdap) | | | | + + + + + | Cervical Cancer | | | | | Screening (Pap) | 4 | | | + + + + + | Vaccine: Influenza | | 07/10/20 | | | (#1) | 0 | 09, | | | | | 07/10/20 | | | | | 09 | | + + + + + Results Not on filefrom Last 3 Months Insurance +-------+--------+ +--------+ +---------+------+ | Payer | Benefi | Subscriber | Effect | Phone | Address | Type | | | t Plan | ID | yanelis | | | | | | / | | Dates | | | | | | Group | | | | | | +-------+--------+ +--------+ +---------+------+ | GEHA | GEHA | [id number] | 06/30/ | [phone] | | PPO | | | [employer] | | 2019-P | 6 | | | | | PPO | | resent | | | | +-------+--------+ +--------+ +---------+------+ + +--------+ +--------+ + + | Guarantor Name | Accoun | Relation to | Date | Phone | Billing Address | | | t Type | Patient | of | | | | | | | | | | + +--------+ +--------+ + + | Brittany Jett | Person | Self [birth year] | [address] | | | al/Fam | | 1985 | [phone] | [place] [address] | | | ry | | | 2 (Home) | | | | | | | [phone] | | | | | | | 4 (Work) | | + +--------+ +--------+ + + Advance Directives + + + + + | Type | Date Recorded | Patient | Explanation | | | | Environmental Health Specialist | | + + + + + | Power of | | | | | Peanut Sheller | | | | + + + + + | Advance | | | | | Directive | | | | + + + + +"
--- OUTSIDE RECORDS SUMMARY | ~2020-04-17 | XMS | Clinical Summary ---
Demographics + + + | Address | [address] | | | [place] [address] | + + + | Home Phone | | + + + | Preferred Language | Unknown | + + + | Marital Status | Single | + + + | Faith Affiliation | NON | + + + [...] Team Providers + +------+ + | Care Compressor Station Engineer Name | Role | Phone | + +------+ + PCP | Unavailable | + +------+ + Source Comments ON is fully live on both [facility] Ambulatory and [facility] InPatient.[facility] Allergies No Known Allergies Medications + [...] e | + + + +---------+------+------+-------+ | [id number] | Take by mouth. | | 0 [...] ry | | | 6 (Home) | [id number] | + +--------+ +--------+ + + Advance [...]
--- OUTSIDE RECORDS SUMMARY | ~2020-04-17 | XMS | Encounter Summary ---
Demographics + + + | Address | [address] | | | [place] [address] | + + + | Home Phone | | + + + | Preferred Language | Unknown | + + + | Marital Status | Single | + + + | Orthodox Affiliation | NON | + + + | Race | White | + + + | Ethnic Group | Not or | + + + Author + + + | Author | [facility] | + + + | Organization | [facility] | + + + | Address | Unknown | + + + | Phone | Unavailable | + + + Support + + +---------+ + | Name | Relationship | Address | Phone | + + +---------+ + | Davy Jett | ECON | Unknown | | + + +---------+ + Care Team Providers + +------+ + | Care Take Out Waiter/Waitress Name | Role | Phone | + [...] | | | | | | at [facility] | | | | | | Health & Healing | | | | | | [address] | | | | | | [facility] | | | | | | and Healing, | | | | | | Building | | | | | | Floor [place], [place] | | | | | | [address] | | | | | | [phone] | | | +--------+ + + + [...]
--- OUTSIDE RECORDS SUMMARY | ~2020-04-17 | XMS | Encounter Summary ---
Demographics + + + | Address | [address] | | | [place] [address] | + + + | Home Phone | | + + + | Preferred Language | Unknown | + + + | Marital Status | Single | + + + | Episcopalian Affiliation | NON | + + + | Race | White | + + + | Ethnic Group | Not or | + + + Author + + + | Author | [facility] | + + + | Organization | [facility] | + + + | Address | Unknown | + + + | Phone | Unavailable | + + + Support + + +---------+ + | Name | Relationship | Address | Phone | + + +---------+ + | Davy Jett | ECON | Unknown | | + + +---------+ + Care Team Providers + +------+ + | Care Facilities Supervisor Name | Role | Phone | [...] + + | 02/17/ | Hospital | [address] | Kee Cedeno, | | | 2012 - | Encounter | [address] | [place] [address] [facility] | | | | | [address] [place] [address] | [address] | | | 02/18/ | | [place] | [place] | | | 2012 | | [address] | [address] | | | | | [phone] | [phone] | | | | | | | [...] and plan outlined therein. Kee Cedeno M.D. Manager [facility] Department of Neurology [facility] olly Tsai MD - 02/18/2013 1:51 PM [...] noticed increasing bilateral knee pain x5 days DIRECTOR TEEN POST that was different from her baseline kenan [...] at night in her legs. Two days DIRECTOR TEEN POST, she went to her PCP with her [...] go away". She then went to the [facility] for further solitario luation. There she was noted to have a UA with positive LE and 15 WBC's, no bacteria (asympt omatic bacturia). She denied any urinary symptoms, but was given a dose of cipro and some ty lenol for her headache. She was then transferred to [facility] for further evaluation. She denied any vision [...] mg by mouth once daily., Historical Med Q-ELFOUGK-CNE ESTR/ETHIN ESTRA (SEASONIQUE ORAL) Take by mouth., [...] | + + + +---------+--------+ + | O-[id number] | Take by mouth. | | 0 [...] Tristian Boland - 02/18/2013 12:00 PM PDT SALES REPRESENTATIVE GROCERIES NOTE: Visited with Patient and Dad. Patient and Dad shared events leading to hospitalization; life and work in [place]; 4 yea r old son as well as hopes and dreams. Patient reported supportive family and friends; mom and sisters in [place]. Offered emotional support and encouragement. [facility] team will follow as needed. Chaplain Tristian Boland M.Div., [facility] [phone] Pager #[phone]; #[phone] documented in this encounter Plan of Treatment [...] | + + + + + | [facility] | [address] | [place] [address] | | | SERVICES, CORE | CHELE [...] | | | LABORATORY | | | [place] | | | SERVICES, | | | [...] | + + + + + | [facility] | [address] | [place] [address] | | | SERVICES, CORE | PARK [...] | + + + + + | [facility] | [address] | [place] [address] | | | NEHA DOYLE | PARK [...] | + + + + + | [facility] | [address] | [place] [address] | | | SERVICES, CORE | CHELE [...] | | | LABORATORY | | | [place] | | | SERVICES, | | | [...] | + + + + + | [facility] | [address] | [place] [address] | | | SERVICES, NEHA | CHELE [...]
--- OUTSIDE RECORDS SUMMARY | ~2020-04-17 | XMS | Encounter Summary ---
Demographics + + + | Address | [address] | | | [place] [address] | + + + | Home Phone | | + + + | Preferred Language | Unknown | + + + | Marital Status | Single | + + + | Jain Affiliation | Unknown | + + + | Race | Unknown | + + + | Ethnic Group | Unknown | + + + Author + + + | Author | [facility] | | | and [place] | + + + | Organization | [facility] | | | and [place] | [...] | Davy Jett | ECON | [address] | | | | | [place] | | | | | [address] | | + + + + + Care Team Providers + +------+ + | Care Lining Marker Name | Role | Phone | + +------+ + | No, Physician | PCP | Unavailable | + +------+ + Reason for Visit + + + | Reason | Comments | + + + | Shoulder Pain | | + + + Encounter Details +--------+ + + + + | Date | Type | Department | Care Team | Description | +--------+ + + + + | 06/30/ | Emergency | [facility] | Dani Reid | Sprain of left | | 2019 | | [facility] EM[facility]Y | MD Trevor [address] | rotator cuff | | | | CENTER [address] | [address] [place] | capsule, initial | | | | [place] | [place] [address] | encounter (Primary | | | | [address] | [phone] | Dx) | | | | [phone] | | | +--------+ + + + [...] on file | | + + + documented as of this encounter [...] + + documented in this encounter Discharge Instructions AttachmentsThe following attachments cannot be sent through Care Everywhere.Strains and Spr ains, Treating (Citizen [place])Strains and Sprains, Self-Care for (Citizen [place])Rotator Cuff Tendon Tear , Understanding a (Citizen [place])documented in this encounter Medications at Time of Discharge + + + +---------+ + + | Medication | Sig | Dispensed | Refills | Start | End Date | | | | | | Date | | + + + +---------+ + + | buPROPion | Take 200 mg by mouth | | 0 | | | | (WELLBUTRIN SR) 200 | 2 times daily. | | | | | | MG 12 hr tablet | | | | | | + + + +---------+ + + | DULoxetine | Take 30 mg by mouth | | 0 | | | | (CYMBALTA) [address] | Daily. | | | | | | capsule | | | | | | + + + +---------+ + + | gabapentin | Take 300 mg by mouth | | 0 | | | | (NEURONTIN) 300 mg | 3 times daily. | | | | | | capsule | | | | | | + + + +---------+ + + | | Take 1 tablet by | 6 | 0 | 06/30/20 | | | oxyCODONE-acetaminop | mouth every 8 hours | tablet | | 19 | 9 | | hen (PERCOCET) 5-325 | as needed for up to | | | | | | mg per tablet | 2 days. | | | | | + + + +---------+ + + documented as of this encounter ED Notes Dani Reid MD - 06/30/2019 5:37 PM PDTFormatting of this note might be diff erent from the original. [facility] Brittany Jett Emergency Department Encounter Note [address] [place] [id number] PCP:No Physician on file [phone] CHIEF COMPLAINT: Chief Complaint Patient presents with Shoulder Pain ED Room: [address] Brittany Jett is a 33 y.o. female who presents to the Emergency Department Patient injured extremity LUE, Mechanism fell two days ago arm went behind her felt a pop in L shoulder. sudden onset localized aching constant 5/10 pain. Positionally exacerbated relieved by rest . Language line manager medical device made available and used to collect historical details as needed. PAST MEDICAL & SURGICAL HISTORY There are no active problems to display for this patient. History reviewed. No pertinent surgical history. 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 DULoxetine (CYMBALTA) [address] capsule Take 30 mg by mouth Daily. gabapentin (NEURONTIN) 300 mg capsule Take 300 mg by mouth 3 times daily. ALLERGIES No Known Allergies FAMILY AND SOCIAL HISTORY History reviewed. No pertinent family history. Social History Socioeconomic History Marital status: Single Spouse name: Not on file Number of children: Not on file Years of education: Not on file Highest education level: Not on file Tobacco Use Smoking status: Current Every Day Smoker Packs/day: 0.50 Smokeless tobacco: Never Used Substance and Sexual Activity Alcohol use: Yes Comment: occasional Drug use: Not Currently REVIEW OF SYSTEMS As in history of present illness. A 10 system review was otherwise negative. PHYSICAL EXAM VITAL SIGNS: (first vital signs):Temp: 36.9 C (98.4 F) Pulse: 70 Resp: 18 SpO2: 98 % BP : 127/57 There is no height or weight on file to calculate BMI. Constitutional: Moderately uncomfortable patient. HEENT: Atraumatic, PERRL, Oropharynx benign. Neck: Supple with full range of motion. No JVD, no lymphadenopathy, no meningismus and no cervical spine tenderness to palpation or step-off noted. Chest: Good air movement bilaterally. No wheezes, No, rales. Cardiovascular: Normal S1 S2 Abdomen: Soft, nontender., no rebound, guarding, or masses., bowel tones normal. and no pu lsatile masses. Back: Within normal limits, no CVA tenderness and no midline thoracic or lumbar spinal tend erness Extremities: Nontender. No lower extremity edema, no calf asymmetry. Present distal pulse s. Skin: Warm, Dry, No rashes Neurologic: Alert & oriented. No focal deficits, Speech normal, gait not tested Psychiatric: Normal mood, affect and judgement. Affected extremity LUE. There is no evidence of gross deformity or bony deformity on visual inspection. There is no evidence of overlying infection, abscess, cellulitis, wound, or laceration, the skin is intact. Active and passive ROM are both intact. The affected site is not tender to palpation there is no bony creptius. Strength is 5/5 and equal BL throughout. There is no evidence of tendon laceration or injury. There is no evidence of ligamentous injury. Affected extremity is neurovascularly intact and equal BL. All compartments of affected extremity are soft and equal BL. The patient can bear weight without difficulty. There is no pain out of proportion, pallor, pulselessness, pain with passive range of motio n, parasthesias. The joints above and below the injury are intact, with an unremarkable exam, and no evidence of injury. TPP at affected site no gross deformity skin intact, NV intact in all digits and foot dista l to injury soft compartments. Pain with internal/external rotation against resistance. EKG 12-lead EKG shows LABS No results found for this or any previous visit. IMAGING STUDIES (X-Rays interpreted by ED Physician) XR L shoulder no acute pathology identified no fracture appreciated. ED COURSE & MEDICAL DECISION MAKING Pertinent Labs & Imaging studies were reviewed along with EMS notes and halfway record s if applicable. (See chart for details) Medications and Allergy list reviewed. Nurses note and old records were reviewed The patient was seen and examined, Patient appears to have L rotator cuff sprain. Treated with sling for comfort counseled not to use for more than four days, ice pack, shor t course of pain medication, work notes. Will return, if not better, in 7-10 days. There is no clinical evidence of Cellulitis Abscess Necrotizing fasciitis Gas gangrene/gangrene Myositis Sirs sepsis NV injury Compartment syndrome Fracture dislocation The patient remained hemodynamically stable within normal limits during their ED course, and sat comfortably in their bed in no apparent distress. The patient was counseled about their results and workup including all incidental findings and the need for out patient follow up to which they verbalized their understanding and were provided. The patient was counseled about the importance of medical recommendations today and the dangers including harm, , permanen t injury, injury, morbidity, and mortality of non adherence to the plan. They verbalize thei r understanding of today's plan and agree with it. They were counseled that emergency servic es are available to them 06/04 and to return to the ED immediately if symptoms return, persis t, change or worsen. The patient was given follow up. They were given further strict, thorumberto gh, actionable return precautions to which they verbalized their understanding. The patient's questions were answered and the patient agreed with the plan. The patient was discharged in good stable condition. Last Set of Vital Signs: Temp: 36.9 C (98.4 F) Pulse: 70 Resp: 18 SpO2: 98 % BP: 127/57 FINAL IMPRESSION ICD-10-CM ICD-9-CM 1. Sprain of left rotator cuff capsule, initial encounter S43.422A 840.4 Follow-up Information [facility]. Specialty: Emergency Medicine Why: If symptoms worsen Contact information: [address] [place] [phone] Portions of this chart were created with [employer] voice recognition software. Inadvertent so und alike substitutions may be present and are unintentional Dani Reid MD 06/30/19 [id number] inigGuanako RN - 06/30/2019 4:28 PM PDTPt reports she fell down a flight of stairs on Thursday. Was s een in [facility] with a c/o of back pain but did not have shoulder pain. Pt states shoulder started hurting next day. Tdocumented in this encounter Plan of Treatment Not on filedocumented as of this encounter Procedures + +--------+ + + + | Procedure Name | Priori | Date/Time | Associated Diagnosis | Comments | | | ty | | | | + +--------+ + + + | XR SHOULDER LEFT 2 + | STAT | 06/30/2019 | | Results for this | | VW | | 4:45 PM | | procedure are in the | | | | PDT | | results section. | + +--------+ + + + documented in this encounter Results XR Shoulder Left 2 + Vw (06/30/2019 4:45 PM PDT) + + | Specimen | + + | | + + + + + | Impressions | Performed At | + + + | No acute osseous findings. Dictated and Signed by: Santo Augustin, | [facility] | | MD Electronically signed: 06/30/2019 7:34 PM | | + + + + + + | Narrative | Performed At | + + + | XR SHOULDER LEFT 2 + VW 06/30/2019 4:30 PM HISTORY: SHOULDER | [facility] | | PAIN. COMPARISON: None. FINDINGS: There are no acute osseous | | | findings. The AC joint is normal. The glenohumeral joint is intact. | | | Bone mineralization is normal. Visualized chest shows no acute | | | findings. Soft tissue structures are unremarkable. | | + + + + + | Procedure Note | + + | Cameron, Rad Results In - 06/30/2019 7:37 PM PDT XR SHOULDER LEFT 2 + VW 06/30/2019 4:30 | | PMHISTORY: SHOULDER PAIN.COMPARISON: None.FINDINGS:There are no acute osseous findings. | | The AC joint is normal. The glenohumeraljoint is intact. Bone mineralization is normal. | | Visualized chest shows no acutefindings. Soft tissue structures are unremarkable. | | IMPRESSION: No acute osseous findings.Dictated and Signed by: Santo Augustin MD | | Electronically signed: 06/30/2019 7:34 PM | |FINDINGS: | |There are no acute osseous findings. The AC joint is normal. The glenohumeral | |joint is intact. Bone mineralization is normal. Visualized chest shows no acute | |findings. Soft tissue structures are unremarkable. | | | |IMPRESSION: | |No acute osseous findings. | | | |Dictated and Signed by: Santo Augustin MD | | Electronically signed: 06/30/2019 7:34 PM | + + + +---------+ + + | Performing | Address | City/State/Zipcode | Phone Number | | Organization | | | | + +---------+ + + | [facility] | | | | + +---------+ + + documented in this encounter Visit Diagnoses + + | Diagnosis | + + | Sprain of left rotator cuff capsule, initial encounter - Primary | + + documented in this encounter"
--- OUTSIDE RECORDS SUMMARY | ~2020-04-17 | XMS | Encounter Summary ---
Demographics + + + | Address | [address] | | | [place] [address] | + + + | Home Phone | | + + + | Preferred Language | Unknown | + + + | Marital Status | Single | + + + | Temple Affiliation | Unknown | + + + | Race | Unknown | + + + | Ethnic Group | Unknown | + + + Author + + + | Author | [facility] | | | and [place] | + + + | Organization | [facility] [place] | | | and [place] | [...] [address] | | | | | [place], [place] | | | | | [address] | | + + + + + Care Team Providers + +------+ + | Care Holistic Health Practitioner Name | Role | Phone | + +------+ + PCP | Unavailable | + +------+ + Encounter Details +--------+ + + + + | Date | Type | Department | Care Team | Description | +--------+ + + + + | 02/15/ | Hospital | [facility] | | | | 2012 | Encounter | MED CTR XRAY [address] | | | | | | [address] | | | | | | [place] [address] | | | | | | [phone] | | | +--------+ + + + [...] | + +--------+ + + + | MRI BRAIN W WO | Routin | 02/15/2013 | | Results for this | | CONTRAST | e | 4:18 PM | | procedure are in the | | | | PDT | | results section. | + +--------+ + + + documented in this encounter Results MRI Brain w wo Contrast (02/15/2013 4:18 PM PDT) + + | Specimen | + + | | + + + + + | Narrative | Performed At | + + + | [facility] | [place] | | Department [address] [facility] [place] | [facility] | | [ rep [address]] [ rep [facility] | | st zip] Signed | - IMAGING | | | | | Patient Name: THIERNOKG Cameron Physician: | | | [birth year] : 1985 Age: 27 Sex: F Unit #: [id number] | | | Exam Date: 02/15/13 Location: [facility] | | | Report #: [id number] Page: | | | %(RAD)RES..mtdd.print.filter("pg") of %(RAD) | | | RES..mtdd.print.filter("tpg") | | | | | | Accession Number: [id number] | | | MR BRAIN WITH AND WITHOUT CONTRAST CLINICAL HISTORY: | | | INVOLUNTARY MOVEMENTS. MUSCLE WEAKNESS. REQUEST TO EVALUATE FOR | | | DEMYELINATING DISEASE. TECHNIQUE: Multiplanar, | | | multisequence imaging of the brain is performed before and after the | | | administration of 8 mL of Gadavist intravenously. | | | COMPARISON: None. FINDINGS: There is no intra- or | | | extraaxial hemorrhage or midline shift. No magnetic susceptibility | | | artifact is present to indicate hemosiderin deposits from remote | | | hemorrhage. The ventricular spaces, CSF cisterns and sulci show a | | | normal symmetric appearance. Awad-white differentiation is normal. No | | | areas of abnormal white matter signal are seen to suggest gliotic | | | change. No mass lesions are seen. The postcontrast images show no | | | areas of abnormal enhancement. Intracranial vasculature appears | | | normal. Posterior fossa contents are normal. Midline | | | structures are normal with normal appearance to the pituitary. There | | | is no Chiari malformation. No adjacent sinus or bony abnormalities | | | are seen. IMPRESSION: NORMAL MRI OF THE BRAIN FOR | | | AGE. COMMENT: RESULTS OF THIS EXAMINATION WERE CALLED TO | | | HER PROVIDER ON COMPLETION OF THE STUDY. Dictated | | | Date/Time: 02/15/2013 16:18 Transcribed Date/Time: 02/15/2013 | | | 21:20 Slitter [employer] Rewinder: | | | <<Signature on File>> | | | | | | John Borja MD02/17/13 0746 <Electronically signed by | | | John Borja MD> John Borja MD 02/15/13 | | | 1618 Slitter And Rewinder: Invrep Gsdvgbhnyivbw67/04/13 1030 | | | Violetta King PA-C | | + + + + + + + + | Performing | Address | City/State/Zipcode | Phone Number | | Organization | | | | + + + + + | [address] | [address] | [place] | [phone] | | [facility] | | [address] | | | - IMAGING | | | | + + + + + documented in this encounter Visit Diagnoses Not on filedocumented in this encounter
[~2020-04-17 11:07] MED LIST changes: +PREDNISONE20 MG PO; +ZITHROMAX250 MG PO
== END 2020-04-17 11:50 | disposition home or self-care (01) ==
LOC: ED 11:07
DX: M25.512 Pain in left shoulder (principal)

== ENCOUNTER 2020-11-01 06:27 | Day surgery (SDC) | payer OTHER ==
[~2020-11-01] VITALS: Ht 167.6 cm; Wt 113.0 kg
--- NOTE | ~2020-11-01 | OR ---
[facility] [address] [place], [place] [address] Draft DATE OF OPERATION: 11/01/2020 SURGEON: Sofi Bass MD PREOPERATIVE DIAGNOSES: 1. Father with rectal cancer, age 43. 2. Paternal uncle of colon cancer, 50s. 3. Paternal grandmother with colon polyps. POSTOPERATIVE DIAGNOSIS: Unremarkable colonoscopy. PROCEDURE: Colonoscopy with hot biopsy at 85 cm. ESTIMATED BLOOD LOSS: None. INDICATIONS: Brittany is a 35-year-old female, asked to see me for a colonoscopy. She presents with a family history as detailed above. She is aware that her family certainly is a candidate for testing for Neff syndrome. In the meantime, we found out this is available at our [facility], that is about an hour and 15 minutes away. She really has no lower GI complaints. She has never had a previous colonoscopy. I gave her a pamphlet on colonoscopy, and we looked at that together along with the risks including, but not limited to gas bloating, crampy abdominal pain, bleeding, perforation requiring surgery, and missed diagnosis. She also understands the need for IV conscious sedation. She had expressed understanding and wished to proceed. PROCEDURE NOTE: Brittany was taken into our endoscopy suite and placed in the left lateral decubitus position. She was given a total of 7 mg of Versed and 175 mcg of fentanyl to cover the case. A digital rectal exam was performed and this was unremarkable. The adult colonoscope was then introduced, advanced all around into the cecum under direct visualization of camera. It took a little extra sedation and abdominal compression in order to advance the scope into the cecum itself. She had a couple areas of liquid particulate stool matter; it took a few minutes to irrigate and suction those two areas out. In the end, we could completely see the appendiceal orifice and the ileocecal valve. We took pictures for photodocumentation throughout. The scope was then slowly withdrawn. There was a fold at 85 cm; it is probably the splenic flexure. At first we PATIENT NAME: BRITTANY PA OPERATIVE REPORT DATE OF : 83 REPORT #: [id number] PHYSICIAN: SOFI BASS MD PCP: MEGHA STARR PAC REPORT IS CONFIDENTIAL AND NOT TO BE RELEASED WITHOUT AUTHORIZATION [facility] [address] [place], [place] [address] [place] thought it might be a lesion, but in the end, we were able to irrigate and suction that out more thoroughly. We think it is just a fold. Nevertheless, we did take a biopsy in that area. The rest of the left colon, sigmoid colon, rectum were unremarkable. Upon retroflexion of scope, there was no additional pathology noted above the anal canal. After this, the gas was suctioned out and colonoscope removed. Brittany tolerated the procedure quite well. RECOMMENDATIONS: Brittany will return in 7 to 10 days to review her biopsy results. She will stay on the 5-year rotation due to her family history. She might consider genetic testing at our [facility]. MD RAFAEL Maldonado/ARTEML /[id number] cc: MD DR. ETHAN Maldonado Copies: SOFI BASS MD ~ PATIENT NAME: BRITTANY PA OPERATIVE REPORT DATE OF : [birth year] REPORT #: [id number] PHYSICIAN: SOFI BASS MD PCP: MEGHA STARR PAC REPORT IS CONFIDENTIAL AND NOT TO BE RELEASED WITHOUT AUTHORIZATION
[2020-11-01] MEDS ORDERED: BUPROPION XL150 MG PO (06:49)
[2020-11-01] MEDS ORDERED: OMEPRAZOLE20 MG PO (06:50)
[2020-11-01] MEDS ORDERED: TRAZODONE HCL100 MG PO (06:50)
--- NOTE | 2020-11-01 07:01 | NUR ---
STATES FALLS ALOT DOESNT KNOW WHY.
--- NOTE | 2020-11-01 07:13 | NUR ---
BLOOD DRAWN AND TO LAB.
--- NOTE | 2020-11-01 08:28 | NUR ---
11/01/20 0828 Julee Lawler 0888-PATIENT ARRIVED TO PACU ON RA AWAKE DROWSY RR EVEN. PATIENT DENIES PAIN OR NAUSEA LAYING LEFT LATERAL. ABDOMEN SOFT. IVF INFUSING.
--- NOTE | 2020-11-01 14:05 | NUR ---
PT ALERT, ORIENTED AND SOMEWHAT ANXIOUS AND IS ADMITTING SHE DOESN'T WANT TO KNOW SHE IS AFRAID OF PAIN. PT HAS HAD SEVERAL RECENT FALLS ISN'T SURE WHY. PT REQUESTED PRAYER, WILL FOLLOW NEEDED
--- NOTE | 2020-11-02 16:21 | PATH ---
[facility] [address], [place] [address] Signed SPECIMEN(S): A COLON POLYP AT 85 CM SPECIMEN SOURCE: A. COLON POLYP AT 85 CM CLINICAL HISTORY: Colonoscopy. Family history of rectal and colon CA. MICROSCOPIC DESCRIPTION: Histologic sections of all submitted blocks are examined by light microscopy. These findings, together with the gross examination, support the pathologic diagnosis. FINAL PATHOLOGIC DIAGNOSIS: Colon, polyp at 85 cm, polypectomy: - Colonic mucosa with no histopathologic abnormality. - Negative for dysplasia or malignancy. COMMENT: Multiple additional deeper levels were examined. NAL:cml:C2NR GROSS DESCRIPTION: The specimen, labeled "MD, colon polyp," is received in formalin and consists of one stapleton soft tissue fragment that measures 0.2 cm in greatest dimension. The specimen is entirely submitted in cassette (A1). JS (under the direct supervision of a pathologist) The Gross Description was prepared using a voice recognition system. The report was reviewed for accuracy; however, sound-alike word errors, addition and/or deletions may occur. If there is any question about this report, please contact Client Services. PERFORMING LABORATORY: The technical component was performed by [facility], [address] [place] [id number] (Tension Machine Operator: Audrey Stanton MD; CLIA# [id number]). [facility] [address] [address] (CLIA# [id number]). Diagnostician: Lauren Wright MD Pathologist PATIENT NAME: KG PA PATHOLOGY DATE OF : [birth year] REPORT #: [id number] PHYSICIAN: ALYSE PATHOLOGY PCP: MEGHA STARR PAC REPORT IS CONFIDENTIAL AND NOT TO BE RELEASED WITHOUT AUTHORIZATION [facility] [address] [place] [address] Signed Electronically Signed 11/02/2020 Copies: ~ PATIENT NAME: KG PA PATHOLOGY DATE OF : [birth year] REPORT #: [id number] PHYSICIAN: ALYSE PATHOLOGY PCP: MEGHA STARR PAC REPORT IS CONFIDENTIAL AND NOT TO BE RELEASED WITHOUT AUTHORIZATION
== END 2020-11-01 09:10 | disposition home or self-care (01) ==
LOC: DS 06:27 → OPS 06:27 → DS 06:45 → OPS 06:45 → DS 09:45
PROVIDERS: ATTEND Colon & Rectal Surgery
PROC: 0DBE8ZZ Excision of Large Intestine, Via Natural or Artificial Opening Endoscopic (ICD-10-PCS; principal; 2020-11-01 06:45)
DX: Z12.11 Encounter for screening for malignant neoplasm of colon (principal); F32.9 Major depressive disorder, single episode, unspecified; F41.9 Anxiety disorder, unspecified; F17.290 Nicotine dependence, other tobacco product, uncomplicated; Z80.0 Family history of malignant neoplasm of digestive organs; Z83.71 Family history of colonic polyps; Z91.030 Bee allergy status
CPT/HCPCS: 84703; 99153; G0500; J2250; J3010; J7121

== ENCOUNTER 2023-04-08 15:09 | Emergency (ER) | payer OTHER ==
[~2023-04-08] VITALS: Ht 167.6 cm; Wt 113.4 kg
[~2023-04-08 15:09] MED LIST changes: +BUPROPION XL150 MG PO; +OMEPRAZOLE20 MG PO; +TRAZODONE HCL100 MG PO
[2023-04-08] MEDS ORDERED: ATOMOXETINE HCL80 MG PO (15:23)
[2023-04-08] MEDS ORDERED: WEGOVY0.5 MG/0.5 SQ (15:23)
[2023-04-08] MEDS ORDERED: EPIN0.3P IM (15:30)
[2023-04-08] MEDS ORDERED: PEPCID20 MG PO (15:33)
[2023-04-08] MEDS ORDERED: PREDNISONE20 MG PO (15:33)
[2023-04-08] MEDS ORDERED: ZYRTEC10 MG PO (15:33)
[2023-04-08 16:38] VITALS: BP 126/90
== END 2023-04-08 16:41 | disposition home or self-care (01) ==
LOC: ED 15:09
DX: T63.441A Toxic effect of venom of bees, accidental (unintentional), initial encounter (principal); Z87.891 Personal history of nicotine dependence; Z79.899 Other long term (current) drug therapy
CPT/HCPCS: 96374; 96375; 99282 25; J1100; J1200